=== PATIENT | female | born 1945 | race Two or more races ===

== ENCOUNTER → 2021-07-02 08:00 | Outpatient (CLI) | payer OTHER | END | disposition home or self-care (01) | LOC: LAB 08:00 → ADM 12:30 → AMB-ENDOS 07-06 12:30 → EDSTATUS 07-06 12:30 | PROVIDERS: ATTEND Surgery | DX: K57.30 Diverticulosis of large intestine without perforation or abscess without bleeding (principal); R19.4 Change in bowel habit; R19.5 Other fecal abnormalities; R93.5 Abnormal findings on diagnostic imaging of other abdominal regions, including retroperitoneum; Z03.818 Encounter for observation for suspected exposure to other biological agents ruled out ==